=== PATIENT | male | born 1945 | race Caucasian/White ===

== ENCOUNTER 2019-01-11 02:39 | Emergency (ER) | payer MEDICARE, SELFPAY ==
[2019-01-11] VITALS (7 sets, daily range): BP systolic 98–108; BP diastolic 70–82; PULSE 133–156; RESP 17–25; TEMP 36.7; O2SAT 93–96
--- NOTE | 2019-01-11 02:42 | DI.CT.S_ITS ---
PROCEDURE: CT HEAD/BRAIN WO CON INDICATIONS: stroke, TPA candidate TECHNIQUE: Noncontrast 4.5 mm thick angled axial sections acquired from the foramen magnum to the vertex, with coronal and sagittal reformats. For radiation dose reduction, the following was used: automated exposure control, adjustment of mA and/or kV according to patient size. COMPARISON: None. FINDINGS: Image quality: Excellent. CSF spaces: Basal cisterns are patent. No extra-axial fluid collections. The ventricles are symmetric in size and shape. Brain: No intracranial bleeds or masses. There is cerebral volume loss for age, with resultant ventricular and sulcal prominence. There are periventricular and deep white matter chronic small vessel ischemic changes. There is intracranial internal carotid artery and vertebral artery atherosclerosis. Skull and face: Calvarium and visualized facial bones appear intact, without suspicious lesions. Sinuses: Mucosal thickening causes near complete opacification of the right maxillary sinus. The mastoids are clear. IMPRESSION: No acute intracranial disease process. Dictated by: Janie Gagnon MD, PhD on 01/11/2019 at 7:22 Approved by: Janie Gagnon MD, PhD on 01/11/2019 at 7:23
--- NOTE | 2019-01-11 02:46 | DI.CT.S_ITS ---
PROCEDURE: CT ANGIO HEAD AND NECK INDICATIONS: large stroke TECHNIQUE: Pre-contrast 4.5 mm thick sections acquired from the foramen magnum to the vertex. After the administration of intravenous contrast, 1 mm thick sections acquired from the aortic arch through the Augustine of Guevara. Post-contrast 4.5 mm thick sections then re-acquired from the foramen magnum to the vertex. 3-dimensional mwejujn-jbwokhvjb-nrnkvfueuj (MIP) and/or volume rendering reformats were acquired of the central intracranial vasculature and neck separately. COMPARISON: [facility], CT, CT HEAD/BRAIN WO CON, 01/11/2019, 2:33. FINDINGS: Image quality: Excellent. BRAIN: CSF spaces: Ventricles are normal in size and shape. Basal cisterns are patent. No extra-axial fluid collections. Brain: No midline shift. No intracranial bleeds or masses. Jackson-white matter interface appears intact. Skull and face: Calvarium and facial bones appear intact, without suspicious lesions. Orbits appear normal. Sinuses: Severe mucosal thickening causing 8 near complete opacification of the visualized right maxillary sinus. mastoids are clear. HEAD CT ANGIOGRAPHY: Anterior circulation: Intracranial internal carotid arteries are normal in flow. Atherosclerotic calcifications noted in the petrous, cavernous and clinoid segments of the internal carotid arteries bilaterally which causes mild multifocal stenoses. The flow within the paired anterior cerebral arteries is normal and symmetric. The flow within the middle cerebral arteries is normal and symmetric. The anterior communicating artery is seen. No aneurysms are seen. Posterior circulation: Atherosclerotic calcifications noted in the V4 segments of the vertebral arteries bilaterally which cause mild short segment stenosis. There is normal flow in the basilar artery. Flow within the posterior cerebral arteries is normal and symmetric. No aneurysms are seen. NECK CT ANGIOGRAPHY: Carotid system: The great vessels demonstrate a conventional anatomy as they arise from the aortic arch. The origins of the common carotid arteries appear patent. The common carotid arteries demonstrate normal caliber and courses. The bifurcation regions are both widely patent. Atherosclerotic calcification is noted in the origins of the internal carotid arteries bilaterally which causes less than 50% stenosis of the vessels.. Posterior circulation: The origins of the vertebral arteries both appear widely patent. The more superior extracranial portions of both vertebral arteries also demonstrate normal courses and calibers. They join to form a normal appearing basilar artery. Soft tissues: Visualized neck soft tissues demonstrate no suspicious abnormalities. Bones: No suspicious bony lesions. Incidental note made of torus mandibularis. Spine degenerative disc disease and facet arthropathy. Visualized cervical spine appears normally aligned. IMPRESSION: 1. No acute intracranial disease process. 2. No large vessel occlusion, hemodynamically significant vascular stenosis, vascular dissection or aneurysm. Any quantitative measurements of stenosis were performed using NASCET criteria. Dictated by: Janie Gagnon MD, PhD on 01/11/2019 at 8:56 Approved by: Janie Gagnon MD, PhD on 01/11/2019 at 9:06
[2019-01-11 02:50] LABS: Add Manual Diff / Slide Review NO; Basophils Absolute Auto 100 /uL (0-100); Basophils Percent Auto 1.2 % (0-2); Eosinophils Absolute Auto 300 /uL (0-450); Eosinophils Percent Auto 3.7 % (2-4); Hematocrit 45.7 % (41-53); Hemoglobin 15.4 g/dL (13.5-17.5); Lymphocytes Absolute Auto 1300 /uL (1100-4500); Lymphocytes Percent Auto 18.3 % (25-40); Mean Corpuscular HGB Conc 33.6 % (30-36); Mean Corpuscular Hemoglobin 33.2 PG (26-34); Mean Corpuscular Volume 98.8 fL (80-100); Monocytes Absolute Auto 800 /uL (0-900); Monocytes Percent Auto 11.9 % (3-14); Neutrophils Absolute Auto 4500 /uL (1500-7000); Neutrophils Percent Auto 64.9 % (50-75); Platelet Count 302 X10^3/uL (150-400); Red Blood Cell Count 4.63 X10^6/uL (4.5-5.9); Red Cell Distribution Width 14.4 % (11.6-14.8); White Blood Cell Count 6.9 X10^3/uL (4.5-11.0)
[2019-01-11 02:56] LABS: INR 1.1 (0.9-1.3); Prothrombin Time 12.3 SECONDS (10.1-12.7)
[2019-01-11 02:58] LABS: PTT Partial Thromboplastin Tim 30 SECONDS (26.4-36.2)
[2019-01-11 03:00] LABS: BUN Creatinine Ratio 17.5 (6-22); Blood Urea Nitrogen 14 mg/dL (9-20); Calcium 8.9 mg/dL (8.4-10.2); Carbon Dioxide 27 mmol/L (22-32); Chloride 104 mmol/L (98-107); Estimated Glomerular Filt Rate > 60.0 mL/min (>60); Glucose 114 mg/dL (80-110); HEMOLYSIS < 15 (0-50); Potassium 4.2 mmol/L (3.4-5.1); Sodium 141 mmol/L (137-145)
--- NOTE | 2019-01-11 03:00 | ED.AMS ---
HPI - Altered Mental Status General Chief Complaint: Altered Mental Status Stated Complaint: Code Stroke Time Seen by Provider: 01/11/19 02:40 Source: family and EMS Mode of arrival: EMS Limitations: altered mental status History of Present Illness HPI narrative: 73-year-old male former smoker whom does not see doctors and carries no known medical problems presents by EMS with large obvious stroke. He is activated as a code stroke and taken directly to CT scan. He was in his normal state of health until 1:00 a.m. and while sitting up eating with his significant other initially complained of a leg cramp and then had a profound change in his mental status and ability to follow commands. They then called family whom activated EMS. Daughter is at the bedside and states he takes no medications, has never had a stroke before, has no known diagnosis of atrial fibrillation, has had no recent surgeries. He has had no recent illness and no injury MD complaint: altered mental status, confusion, decreased responsiveness and weakness Onset (ago): hour(s) Time: 01:00 Timing confirmed by: spouse Severity: severe Consistency of symptoms: constant Related Data Home Medications Medication Instructions Recorded Confirmed No Known Home Medications 01/11/19 01/11/19 Allergies Allergy/AdvReac Type Severity Reaction Status Date / Time No Known Drug Allergies Allergy Verified 01/11/19 02:57 Review of Systems Review of Systems ROS Unobtainable: Unobtainable due to mental status/LOC Exam Narrative Exam Narrative: GENERAL: 73-year-old male in obvious significant distress with what appeared to be a large stroke HEAD: Atraumatic. Normocephalic. No temporal or scalp tenderness. EYES: Pupils equal round and reactive. Extraocular motions intact. No scleral icterus. No injection or drainage. ENT: Nose without bleeding, purulent drainage or septal hematoma. Throat without erythema, tonsillar hypertrophy or exudate. Uvula midline. Airway patent. NECK: Trachea midline. No JVD or lymphadenopathy. Supple, nontender, no meningeal signs. CARDIOVASCULAR: Rapid and irregular RESPIRATORY: Clear to auscultation. Breath sounds equal bilaterally. No wheezes, rales, or rhonchi. GASTROINTESTINAL: Abdomen soft, non-tender, nondistended. No hepato-splenomegaly, or palpable masses. No guarding. EXTREMITIES: No clubbing, cyanosis, or edema. No joint tenderness, effusion, or edema noted. BACK: Nontender without deformity or crepitance. No flank tenderness. SKIN: No rash or erythema. Initial Vital Signs Initial Vital Signs: Vital Signs Temperature 98.1 F 01/11/19 02:42 Pulse Rate 152 H 01/11/19 02:42 Respiratory Rate 17 01/11/19 02:42 Blood Pressure 108/82 01/11/19 02:42 Pulse Oximetry 96 01/11/19 02:42 Scores NIH Stroke Scale Level of Conciousness: Alert, keenly responsive Ask month/age: Answers neither question correctly, aphasic, stuporous, coma Open/close eyes, close hand: Performs one task correctly Best gaze horizontal: Normal Visual guerrero: No visual loss Facial palsy: Partial paralysis, total or near total paralysis of lower face Left arm drift: No drift for full 10 sec Right arm drift: Some effort against gravity, cannot maintain, drifts down to bed Left leg drift: No drift for full 10 sec Right leg drift: No effort against gravity Limb ataxia: Absent Sensory on face/arms/legs: Mild to moderate sensory loss, can tell touch Best language: Severe aphasia, not much is understood, fragmented Dysarthria: Severe, unintelligible Extinction or inattention: Visual, tactile, auditory, spacial or personal inattention to stimuli Total NIH Stroke scale score: 16 Course Orders Ordered: ED Orders 01/11/19 02:42 CT head/brain wo con Stat Basic Metabolic Panel Stat Complete Blood Count AUTO DIFF Stat Ethanol (ETOH) Stat Partial Thromboplastin Time Stat Prothrombin Time INR Stat Urine Drug Screen, Rapid Stat EKG-12 Lead Stat 01/11/19 02:46 CT angio head and neck Stat 01/11/19 03:25 Type and Screen Stat Sodium Chloride (Normal Saline 0.9%) 1,000 mls @ 150 mls/hr IV CONT PORFIRIO Last Admin: 01/11/19 03:17 Dose: 150 mls/hr Discontinued Medications Alteplase, Recombinant (Activase) 74 mg 0.81 mg/kg (74 mg) IV NOW ONE Stop: 01/11/19 04:00 Last Admin: 01/11/19 03:56 Dose: 74 mg Alteplase, Recombinant (Activase) 8 mg 0.09 mg/kg (8 mg) IV NOW ONE Stop: 01/11/19 04:00 Last Admin: 01/11/19 03:56 Dose: 8 mg Diltiazem HCl (Cardizem) 10 mg IV NOW ONE Stop: 01/11/19 03:14 Last Admin: 01/11/19 03:17 Dose: 10 mg Metoprolol Tartrate (Lopressor) 5 mg IV Q5M [facility] Stop: 01/11/19 04:41 Last Admin: 01/11/19 05:10 Dose: 5 mg Admin: 01/11/19 05:04 Dose: 5 mg Reevaluation(s) Reevaluation #1: tPA Contraindications for Ischemic Stroke from [employer] on 01/11/2019 All calculations should be rechecked by clinician prior to use RESULT SUMMARY: Patient eligible for tPA. INPUTS: Age ?17 ?> 1 = Yes Clinical diagnosis of ischemic stroke causing neurological deficit ?> 1 = Yes Time of symptom onset <4.5 hours ?> 1 = Yes Intracranial hemorrhage on CT ?> 0 = No Clinical presentation suggests subarachnoid hemorrhage ?> 0 = No Neurosurgery, head trauma, or stroke in past 3 months ?> 0 = No Uncontrolled hypertension (>185 mmHg SBP or >110 mmHg DBP) ?> 0 = No History of intracranial hemorrhage ?> 0 = No Known intracranial arteriovenous malformation, neoplasm, or aneurysm ?> 0 = No Active internal bleeding ?> 0 = No Suspected/confirmed endocarditis ?> 0 = No Known bleeding diathesis ?> 0 = No Abnormal blood glucose (<50 mg/dL) ?> 0 = No Only minor or rapidly improving stroke symptoms ?> 0 = No Major surgery or serious non-head trauma in the previous 14 days ?> 0 = No History of gastrointestinal or urinary tract hemorrhage within 21 days ?> 0 = No Seizure at stroke onset ?> 0 = No Recent arterial puncture at a noncompressible site ?> 0 = No Recent lumbar puncture ?> 0 = No Post myocardial infarction pericarditis ?> 0 = No ?> 0 = No Age >80 years ?> 0 = No History of prior stroke and diabetes ?> 0 = No Any active anticoagulant use (even with INR <1.7) ?> 0 = No <calculator id='[id number]'>NIHSS</calculator> >25 ?> 0 = No CT shows multilobar infarction (hypodensity >1/3 cerebral hemisphere) ?> 0 = No tPA (Tissue Plasminogen Activator) Dosing for Stroke Calculator from [employer] on 01/11/2019 All calculations should be rechecked by clinician prior to use RESULT SUMMARY: 8.2 mg Bolus dose, given IV over 1 min 74.1 mg Infusion, given IV over 60 mins 17.6 mg Waste, to be discarded INPUTS: Weight ?> 91.5 kg bolus initiated at 0356 infusion at 0357, complete at 0456 Reevaluation #2: patient is having some mild improvement, though still life altering event. I had a lengthy discussion with the on-call stroke neurologist including some mild improvement, as well as the presence of rapid AFib. We sure the opinion that I a cardioversion this patient is not indicated in that rate control is appropriate but this is not a contraindication to the use of tPA. I have consented the patient and multiple family members at the bedside regarding the risks and benefits of the administration of tPA and we all sure the opinion that in an effort to give the patient the best chance at a return of normal function tPA will be administered. 0352 [facility] contacted for weather check. Stroke provider viewing CTA Reevaluation #3: minimal rate control with Cardizem 10mg IVP very minimal improvement if any with Metoprolol 5mg IV x3 overall neurologic symptoms mildly improved with subtle change in facial weakness, still cannot effectively communicate Able to use R arm now R leg shows no improvement Consultations Consultation #1: stroke team paged stroke paged for 3rd time ([id number]). Wrong number provided Dr. Zambrano stroke physician has interpreted CTA and suggests there is likely a soft clot at distal M1 and instructs us to proceed with Code IR Time: 03:00 Vital Signs - 8 hr 01/11/19 02:42 01/11/19 03:09 01/11/19 03:17 Temperature 98.1 F 98.1 F Pulse Rate 152 H 152 H 156 H Respiratory Rate 17 17 Blood Pressure 108/82 101/70 Blood Pressure [Right Arm] 108/82 Pulse Oximetry 96 96 01/11/19 03:21 01/11/19 03:41 01/11/19 03:43 Temperature Pulse Rate 137 H 133 H 150 H Respiratory Rate 21 25 H 24 Blood Pressure Blood Pressure [Right Arm] 103/73 101/74 101/74 Pulse Oximetry 93 96 95 01/11/19 03:53 Temperature Pulse Rate 142 H Respiratory Rate 20 Blood Pressure Blood Pressure [Right Arm] 98/81 Pulse Oximetry 93 MDM - Altered Mental Status Differential Diagnosis Likely altered mental status Medical Records Attestation: I reviewed the patient's medical records. Lab Data Attestation: I reviewed the patient's lab results. Result diagrams: 01/11/19 02:42 01/11/19 02:42 Lab Results 01/11/19 01/11/19 01/11/19 Range/Units 02:42 02:42 02:42 WBC 6.9 (4.5-11.0) X10^3/uL RBC 4.63 (4.5-5.9) X10^6/uL Hgb 15.4 (13.5-17.5) g/dL Hct 45.7 (41-53) % MCV 98.8 (80-100) fL MCH 33.2 (26-34) PG MCHC 33.6 (30-36) % RDW 14.4 (11.6-14.8) % Plt Count 302 (150-400) X10^3/uL Neut % (Auto) 64.9 (50-75) % Lymph % (Auto) 18.3 L (25-40) % Fannin % (Auto) 11.9 (3-14) % Eos % (Auto) 3.7 (2-4) % Baso % (Auto) 1.2 (0-2) % Neut # (Auto) 4500 (8172-6372) /uL Lymph # (Auto) 1300 (5663-9492) /uL Fannin # (Auto) 800 (0-900) /uL Eos # (Auto) 300 (0-450) /uL Baso # (Auto) 100 (0-100) /uL PT 12.3 (10.1-12.7) SECONDS INR 1.1 (0.9-1.3) APTT 30 (26.4-36.2) SECONDS Sodium 141 (137-145) mmol/L Potassium 4.2 (3.4-5.1) mmol/L Chloride 104 (98-107) mmol/L Carbon Dioxide 27 (22-32) mmol/L BUN 14 (9-20) mg/dL Creatinine 0.80 (0.66-1.25) mg/dL Estimated GFR > 60.0 (>60) mL/min BUN/Creatinine Ratio 17.5 (6-22) Glucose 114 H (80-110) mg/dL Calcium 8.9 (8.4-10.2) mg/dL Ethyl Alcohol mg/dL Blood Type Antibody Screen 01/11/19 01/11/19 Range/Units 02:42 03:25 WBC (4.5-11.0) X10^3/uL RBC (4.5-5.9) X10^6/uL Hgb (13.5-17.5) g/dL Hct (41-53) % MCV (80-100) fL MCH (26-34) PG MCHC (30-36) % RDW (11.6-14.8) % Plt Count (150-400) X10^3/uL Neut % (Auto) (50-75) % Lymph % (Auto) (25-40) % Fannin % (Auto) (3-14) % Eos % (Auto) (2-4) % Baso % (Auto) (0-2) % Neut # (Auto) (4317-1795) /uL Lymph # (Auto) (1454-9697) /uL Fannin # (Auto) (0-900) /uL Eos # (Auto) (0-450) /uL Baso # (Auto) (0-100) /uL PT (10.1-12.7) SECONDS INR (0.9-1.3) APTT (26.4-36.2) SECONDS Sodium (137-145) mmol/L Potassium (3.4-5.1) mmol/L Chloride (98-107) mmol/L Carbon Dioxide (22-32) mmol/L BUN (9-20) mg/dL Creatinine (0.66-1.25) mg/dL Estimated GFR (>60) mL/min BUN/Creatinine Ratio (6-22) Glucose (80-110) mg/dL Calcium (8.4-10.2) mg/dL Ethyl Alcohol < 10 mg/dL Blood Type A Negative Antibody Screen Negative Imaging Data CT scan - head: Attestation: I personally reviewed and interpreted this imaging study as follows: My impression: No bleed Radiologist's impression: No bleed or contraindication to TPA CTA Head/Neck: Attestation: I personally reviewed and interpreted this imaging study as follows: Radiologist's impression: Moderate atherosclerotic changes of extracranial and intracranial vessels without significant stenosis or occlusion identified ECG Data Attestation: I personally reviewed and interpreted this ECG as follows: Prior ECG tracings: not available for review Interpretation: Rapid AFib in the 140s without signs of ischemia Critical Care Time Critical Care Time: Yes Total Critical Care Time: 45 Attestation: The high probability of a clinically significant, sudden or life threatening deterioration of the [neurologic] system(s) required my full and direct attention, intervention and personal management. The aggregate critical care time was [45] minutes. This time is in addition to time spent performing reported procedures but includes the following: [x] Data Review and interpretation [x] Patient assessment and monitoring of vital signs [x] Documentation [x] Medication orders and management Discharge Plan Departure Patient Disposition: [facility] Clinical Impression: Acute ischemic stroke Prescriptions: No Action No Known Home Medications RF: 0
[2019-01-11] MEDS: dilTIAZem 5 MG/ML SDV 10 MG IV (03:17)
[2019-01-11] MEDS: SODIUM CHLORIDE 0.9% 1,000 ML 150 ML IV (03:17)
[2019-01-11 03:41] LABS: Ethanol (ETOH) < 10 mg/dL
--- NOTE | 2019-01-11 03:42 | PC.NURSE ---
Dr Hanley now at bedside discussing risks and benefits of TPA admin. Pt and family are agreeable.
[2019-01-11] MEDS: ALTEPLASE 100 MG VIAL 74 MG IV (03:56)
[2019-01-11] MEDS: ALTEPLASE 100 MG VIAL 8 MG IV (03:56)
--- NOTE | 2019-01-11 04:15 | PC.NURSE ---
diltiazem reduced heart rate to 140s, provider notified, orders recieved.
--- NOTE | 2019-01-11 04:59 | PC.NURSE ---
alteplase given per protocol. KW verified dosing. started at 0356. Ended at 0456.
[2019-01-11] MEDS: METOPROLOL TARTRATE 5 MG/5 ML INJ IV ×3 (05:04→05:28)
--- NOTE | 2019-01-11 06:16 | PC.NURSE ---
NIHSS in chart to be scanned into medical record.
--- NOTE | 2019-01-11 06:22 | PC.NURSE ---
Normal saline to continue in transport
== END 2019-01-11 05:25 | disposition short-term general hospital (02) ==
PROVIDERS: Emergency Provider Emergency Medicine
DX: I63.9 Cerebral infarction, unspecified (principal)
CPT/HCPCS: 36415; 70450; 70496; 70498; 80048; 80320; 85025; 85610; 85730; 86850; 86900; 86901; 93005; 93010; 96361; 96374; 96375; 99285; 99291; 99292; J2997; Q9967

== ENCOUNTER → 2019-06-21 13:40 | Outpatient (CLI) | payer MEDICARE, SELFPAY ==
--- NOTE | 2019-06-21 | DI.ECHO.S_ITS ---
[facility]---------+ [facility] +---------+ : : [address] : [place] : : : : [id number] : : : : Phone: [phone] Echocardiogram Report + + :Name: ALLAN GONZALES Study Date: 06/21/2019 Height: 73 in : :[facility] Weight: 187 lb : : Gender: Male BSA: 2.1 m2 : :: 1945 Age: 73 yrs BP: 138/82 mmHg: :Reason For Study: Atrial fibrillation : : Performed By: Karina Ascencio : :Referring: VINNIE WILLIAM : + + Interpretation Summary The ejection fraction is estimated to be 60-65%. There is mild mitral regurgitation. A patent foramen ovale is present. The aortic valve is moderately calcified. The calculated aortic valve area is 0.6 cm2. There is severe aortic stenosis. The right ventricular systolic pressure is estimated to be at least 44 mmHg based on an estimated right atrial pressure of 3 mm Hg. Procedure: A two-dimensional transthoracic echocardiogram with color flow and Doppler was performed. The study quality was technically good. Comparison is made with the echocardiogram of 11-23-09. The patient was in normal sinus rhythm during the exam. Left Ventricle: The left ventricle is normal in size, wall thickness, and systolic function without any focal wall motion abnormalities. The ejection fraction is estimated to be 60-65%. Left ventricular wall motion is normal. Diastolic parameters suggest a pseudonormalization pattern, consistent with probable elevated filling pressures. Right Ventricle: The right ventricle grossly appears normal in size with probable normal systolic function. Atria: The left atrium is mildly dilated. The right atrium is mildly dilated. A patent foramen ovale is present. Mitral Valve: The mitral valve leaflets appear mildly thickened, but open well. There is mild mitral regurgitation. Aortic Valve: The aortic valve is moderately calcified. The calculated aortic valve area is 0.6 cm2. The aortic valve area is 0.7 centimeters squared by planimetry. The peak aortic velocity is 4.5 m/sec. The aortic valve mean gradient is 49 mmHg. Severity ratio is 0.17. There is severe aortic stenosis. No aortic regurgitation is present. Tricuspid Valve: The tricuspid valve leaflets are thin and pliable. There is mild tricuspid regurgitation. The right ventricular systolic pressure is estimated to be at least 44 mmHg based on an estimated right atrial pressure of 3 mm Hg. Pulmonic Valve: The pulmonic valve is not well seen, but is grossly normal. There is mild pulmonic regurgitation. Great Vessels: The aortic root is mildly dilated. The ascending aorta is normal in size. The aortic arch is at the upper limits of normal in size. The IVC is of normal diameter and collapses greater than 50% with a sniff. This suggests a low right atrial pressure of 3 mm Hg. Pericardium/ Pleura There is no pericardial effusion. There is no pleural effusion. MMode/2D Measurements & Calculations LVIDd: 4.4 cm LVOT diam: 2.1 cm LVIDs: 2.3 cm Ao root diam: 3.9 cm FS: 48.2 % Aortic Jxn: 3.0 cm EPSS: 1.4 cm asc Aorta Diam: 3.4 cm IVSd: 1.0 cm Ao Arch Diam (Prox Trans): 3.0 cm LVPWd: 0.93 cm LV mendoza. diameter/BSA (cm/m^2): 2.1 LV sys. diameter/BSA (cm/m^2): 1.1 LA dimension: 5.1 cm RA long axis: 5.2 cm LA A2 area: 22.3 cm2 RA area: 21.7 cm2 LA A4 area: 23.6 cm2 RA vol: 77.5 ml LA length (vol): 6.2 cm RA : 37.0 ml/m2 LA vol: 71.9 ml IVC diam: 1.7 cm LA vol index: 34.4 ml/m2 RVDd major: 6.4 cm RVD1 (basal): 3.5 cm RVD2 (mid): 2.8 cm EBONI (plan): 0.65 cm2 Doppler Measurements & Calculations Ao V2 max: 448.1 cm/sec LVOT Max Mason: 76.8 cm/sec Ao V2 mean: 329.2 cm/sec LV V1 max P.4 mmHg Ao max P.3 mmHg LV V1 VTI: 21.2 cm Ao mean P.8 mmHg EBONI(I,D): 0.62 cm2 Ao V2 VTI: 124.1 cm EBONI(V,D): 0.62 cm2 sev ratio: 0.17 EBONI indexed to BSA (cm^2/m^2): 0.30 MV E max mason: 96.1 cm/sec TR max mason: 321.0 cm/sec MV A max mason: 26.6 cm/sec TR max P.2 mmHg MV E/A: 3.6 PA V2 max: 49.1 cm/sec Med Peak E' Mason: 3.8 cm/sec PA V2 mean: 31.9 cm/sec E/E' med: 25.4 PA mean P.49 mmHg Lat Peak E' Mason: 7.3 cm/sec PA Accel Time: 0.08 sec E/E' lat: 13.2 E/e' average: 19.3 MV dec time: 0.25 sec MV P1/2t: 76.3 msec MV P1/2t max mason: 97.4 cm/sec SV(LVOT): 76.8 ml MVA(P1/2t): 2.9 cm2 Reading Physician:10:23 AM
== END ==
PROVIDERS: Visit Provider Internal Medicine Cardiovascular Disease
DX: I08.3 Combined rheumatic disorders of mitral, aortic and tricuspid valves (principal); Q21.1 Atrial septal defect; I48.91 Unspecified atrial fibrillation
CPT/HCPCS: 93306

== ENCOUNTER 2020-07-21 17:38 | Emergency (ER) | payer MEDICARE, SELFPAY ==
[2020-07-21] VITALS (11 sets, daily range): BP systolic 115–140; BP diastolic 68–78; PULSE 69–90; RESP 14–35; TEMP 37.1; O2SAT 95–97; BMI 25.0
--- NOTE | 2020-07-21 17:55 | DI.CT.S_ITS ---
PROCEDURE: CT ABDOMEN PELVIS W CON INDICATIONS: Abdominal pain TECHNIQUE: After the administration of intravenous contrast, 5 mm thick sections acquired from the diaphragm to the symphysis. 5 mm coronal and sagittal reformats were acquired. For radiation dose reduction, the following was used: automated exposure control, adjustment of mA and/or kV according to patient size. COMPARISON: Outside Film, CT, CT ANGIO ABDOMEN PELVIS, 11/11/2019, 16:43. FINDINGS: Image quality: There is mild motion artifact. ABDOMEN: Lung bases: Mild dependent atelectasis is demonstrated bilaterally. Heart size is normal. There is a prosthetic aortic valve. There is a small hiatal hernia. Solid organs: Evaluation of the liver demonstrates no focal hepatic lesions. The gallbladder is distended with mild gallbladder wall thickening and enhancement. No calcified gallstones. Biliary system is non-dilated. Pancreas enhances normally. No peripancreatic fat stranding or fluid collections. No pancreatic duct dilatation. The spleen is normal in size. No adrenal nodules. Kidneys demonstrate no hydronephrosis. There is a small nonobstructing stone within the right kidney measuring up to 3 mm. Small hypodensities are demonstrated in the kidneys bilaterally, too small to characterize but likely representing cysts. Peritoneum and bowel: Small bowel loops demonstrate normal wall thickness and caliber. The appendix is not discretely identified and likely surgically absent. No pericecal inflammatory changes to suggest appendicitis. There is colonic diverticulosis without acute diverticulitis. Mild short segment mild bowel wall thickening is demonstrated in the sigmoid colon compatible with a mild colitis. There is moderate stool distention of the rectum suggestive of impaction. No free fluid or air. Nodes and vessels: No retroperitoneal or mesenteric adenopathy by size criteria. Aorta and inferior vena cava are normal in size. Miscellaneous: No ventral hernias. PELVIS: Genitourinary: Bladder wall thickness is normal. Miscellaneous: No inguinal hernias or adenopathy. Bones: No suspicious bony lesions. No vertebral body compression fractures. There is severe degenerative disc disease at L2-L3 and L4-5. IMPRESSION: 1. Distention of the gallbladder with mild wall thickening and enhancement. No calcified gallstones identified. The findings are suspicious for developing acute cholecystitis and if indicated further evaluation may be obtained with ultrasound. 2. Mild short segment colonic wall thickening in the sigmoid colon compatible with a nonspecific colitis, likely infectious or inflammatory. 3. Moderate stool distention in the rectum suggestive of fecal impaction. Dictated by: Diego Martinez M.D. on 07/21/2020 at 19:08 Approved by: Diego Martinez M.D. on 07/21/2020 at 19:14
[2020-07-21] MEDS: SODIUM CHLORIDE 0.9% 1,000 ML 150 ML IV (18:01)
[2020-07-21 18:09] LABS: Add Manual Diff / Slide Review NO; Basophils Absolute Auto 100 /uL (0-100); Basophils Percent Auto 0.6 % (0-2); Eosinophils Absolute Auto 100 /uL (0-450); Hematocrit 45.6 % (41-53); Hemoglobin 15.6 g/dL (13.5-17.5); Lymphocytes Absolute Auto 900 /uL (1100-4500); Lymphocytes Percent Auto 8.8 % (25-40); Mean Corpuscular HGB Conc 34.3 % (30-36); Mean Corpuscular Hemoglobin 31.4 PG (26-34); Mean Corpuscular Volume 91.4 fL (80-100); Monocytes Absolute Auto 900 /uL (0-900); Monocytes Percent Auto 8.9 % (3-14); Neutrophils Absolute Auto 8400 /uL (1500-7000); Neutrophils Percent Auto 80.7 % (50-75); Platelet Count 317 X10^3/uL (150-400); Red Blood Cell Count 4.99 X10^6/uL (4.5-5.9); Red Cell Distribution Width 15.6 % (11.6-14.8); White Blood Cell Count 10.4 X10^3/uL (4.5-11.0)
[2020-07-21 18:14] LABS: Alanine Aminotransferase 18 IU/L (<50); Albumin 4.3 g/dL (3.5-5.0); Albumin Globulin Ratio 1.2 (1.0-2.8); Alkaline Phosphatase 106 U/L (38-126); Aspartate Aminotransferase 24 IU/L (17-59); BUN Creatinine Ratio 23.8 (6-22); Bilirubin Total 2.4 mg/dL (0.2-1.3); Blood Urea Nitrogen 19 mg/dL (9-20); Calcium 9.4 mg/dL (8.4-10.2); Carbon Dioxide 24 mmol/L (22-32); Chloride 103 mmol/L (98-107); Estimated Glomerular Filt Rate > 60.0 mL/min (>60); Globulin 3.7 g/dL (1.7-4.1); Glucose 99 mg/dL (80-110); HEMOLYSIS < 15 (0-50); Lipase 30 U/L (23-300); Potassium 4.4 mmol/L (3.4-5.1); Sodium 135 mmol/L (137-145)
--- NOTE | 2020-07-21 19:08 | ED_ITS ---
HPI - Nausea/Vomiting/Diarrhea General Chief complaint: Nausea/Vomiting/Diarrhea Stated complaint: severe abd pain/had diarrhea now constipation Time Seen by Provider: 07/21/20 17:43 Source: patient Mode of arrival: Ambulatory Limitations: no limitations History of Present Illness HPI Narrative: 74-year-old male nonsmoker with history of high blood pressure and previous stroke presents with family and a chief complaint of 3 days of increasing abdominal discomfort, decreased bowel movements and some nausea. He had been having diarrhea prior to all this and had been prescribed an anti diarrheal medication and seems to be a problems with constipation now. His discomfort is persistent and seems to be worse with motion and improves with rest. He denies any fever or chills. He has had a decreased appetite during this episode. He does not have a longstanding history of constipation. MD complaint: nausea and abdominal pain Related Data Home Medications Medication Instructions Recorded Confirmed atorvastatin 10 mg PO DAILY 07/21/20 07/21/20 warfarin 5 mg PO DAILY 07/21/20 07/21/20 Allergies Allergy/AdvReac Type Severity Reaction Status Date / Time No Known Drug Allergies Allergy Verified 01/11/19 02:57 Review of Systems Constitutional Constitutional: Denies chills, Denies fatigue, Denies fever(s), Denies frequent falls, Denies lethargy and Denies weakness Eyes Eyes: Denies change in vision, Denies eye discharge, Denies irritation and Denies loss of vision ENT Ears, Nose, Mouth, and Throat: Denies change in voice, Denies dizziness, Denies neck pain, Denies sore throat and Denies throat swelling Cardiovascular Cardiovascular: Denies chest pain, Denies irregular heart rhythm, Denies lightheadedness, Denies palpitations, Denies dyspnea, Denies dyspnea on exertion and Denies orthopnea Respiratory Respiratory: Denies cough, Denies dyspnea, Denies dyspnea on exertion and Denies wheezing Gastrointestinal Gastrointestinal: Reports abdominal pain, Denies change in bowel habits, Reports change in stool character, Denies diarrhea, Reports nausea and Denies vomiting Musculoskeletal Musculoskeletal: Denies neck pain and Denies numbness Integumentary/Breasts Skin/Breast: Denies pruritus, Denies erythema, Denies rash and Denies wounds Neurologic Neurologic: Denies behavioral changes, Denies confusion, Denies dizziness, Denies frequent falls, Denies loss of vision, Denies numbness and Denies weakness Psychiatric Psychiatric: Denies anxiety, Denies behavioral changes, Denies confusion, Denies depression, Denies homicidal ideation and Denies suicidal ideation Endocrine Endocrine: Denies fatigue, Denies flushing and Denies palpitations Hematologic/Lymphatic Hematologic/Lymphatic: Denies easy bruising Allergic/Immunologic Allergic/Immunologic: Denies urticaria, Denies throat swelling and Denies whee zing Patient History Social History Smoking Status: Never smoker Smoking Status: Never smoker alcohol intake frequency: 0-2 drinks per day Substance Use Type: does not use Exam Narrative Exam Narrative: GENERAL: [74] year old patient appears stated age. Well- nourished, well-developed patient, in mild distress. Very hard of hearing HEAD: Atraumatic. Normocephalic. EYES: Pupils equal round and reactive. Extraocular motions intact. No scleral icterus. No injection or drainage. ENT: Nose without bleeding, purulent drainage. Throat without erythema, tonsillar hypertrophy or exudate. Airway patent. NECK: Trachea midline. Non tender CARDIOVASCULAR: Regular rate and rhythm without murmurs, gallops, or rubs. RESPIRATORY: Clear to auscultation. Breath sounds equal bilaterally. No wheezes, rales, or rhonchi. GASTROINTESTINAL: Abdomen soft, non-tender, nondistended. Bowel sounds in all 4 quadrants. No pain in RUQ RECTAL: Large amount of stool in rectum. EXTREMITIES: No edema or joint tenderness. BACK: Nontender without deformity or crepitance. No flank tenderness. NEURO: AOx3. SKIN: No rash or erythema of visible areas Initial Vital Signs Initial Vital Signs: Vital Signs Temperature 98.7 F 07/21/20 17:50 Pulse Rate 81 07/21/20 17:50 Respiratory Rate 16 07/21/20 17:50 Blood Pressure 136/78 07/21/20 17:50 Pulse Oximetry 96 07/21/20 17:50 Course Course Course Narrative: fair amount of stool removed with manual disimpaction, however still stool in rectal vault. Enema performed by nursing and patient has tremendous improvement in symptoms. Orders Ordered: ED Orders 07/21/20 17:50 Complete Blood Count AUTO DIFF Stat Comprehensive Metabolic Panel Stat Lipase Stat 07/21/20 17:55 CT abdomen pelvis w con Stat 07/21/20 19:28 US abdomen limited Stat Sodium Chloride (Normal Saline 0.9%) 1,000 mls @ 150 mls/hr IV CONT PORFIRIO Last Admin: 07/21/20 18:01 Dose: 150 mls/hr Documented by: DOUGLAS Discontinued Medications Sodium Biphosphate/Sodium Phosphate (Fleet Enema) 1 each IA NOW ONE Stop: 07/21/20 21:08 Last Admin: 07/21/20 21:09 Dose: 1 each Documented by: MINI Vital Signs Vital signs: Vital Signs - 8 hr 07/21/20 17:50 07/21/20 17:59 07/21/20 18:00 Temperature 98.7 F Pulse Rate 81 90 84 Respiratory Rate 16 32 H 24 Blood Pressure 136/78 115/68 Pulse Oximetry 96 96 97 07/21/20 18:38 07/21/20 19:00 07/21/20 19:30 Temperature Pulse Rate 78 76 73 Respiratory Rate 24 34 H 24 Blood Pressure 131/75 135/78 Pulse Oximetry 97 96 97 07/21/20 20:00 07/21/20 20:30 07/21/20 21:00 Temperature Pulse Rate 69 75 Respiratory Rate 21 20 Blood Pressure 127/75 139/70 137/72 Pulse Oximetry 95 96 07/21/20 22:00 Temperature Pulse Rate 70 Respiratory Rate 35 H Blood Pressure 140/75 Pulse Oximetry 95 MDM - Nausea/Vomiting/Diarrhea Lab Data Result diagrams: 07/21/20 17:50 07/21/20 17:50 Labs: Lab Results 07/21/20 07/21/20 Range/Units 17:50 17:50 WBC 10.4 (4.5-11.0) X10^3/uL RBC 4.99 (4.5-5.9) X10^6/uL Hgb 15.6 (13.5-17.5) g/dL Hct 45.6 (41-53) % MCV 91.4 (80-100) fL MCH 31.4 (26-34) PG MCHC 34.3 (30-36) % RDW 15.6 H (11.6-14.8) % Plt Count 317 (150-400) X10^3/uL Neut % (Auto) 80.7 H (50-75) % Lymph % (Auto) 8.8 L (25-40) % Shelby % (Auto) 8.9 (3-14) % Eos % (Auto) 1.0 L (2-4) % Baso % (Auto) 0.6 (0-2) % Neut # (Auto) 8400 H (1218-3318) /uL Lymph # (Auto) 900 L (0794-3228) /uL Shelby # (Auto) 900 (0-900) /uL Eos # (Auto) 100 (0-450) /uL Baso # (Auto) 100 (0-100) /uL Sodium 135 L (137-145) mmol/L Potassium 4.4 (3.4-5.1) mmol/L Chloride 103 (98-107) mmol/L Carbon Dioxide 24 (22-32) mmol/L BUN 19 (9-20) mg/dL Creatinine 0.80 (0.66-1.25) mg/dL Estimated GFR > 60.0 (>60) mL/min BUN/Creatinine Ratio 23.8 H (6-22) Glucose 99 (80-110) mg/dL Calcium 9.4 (8.4-10.2) mg/dL Total Bilirubin 2.4 H (0.2-1.3) mg/dL AST 24 (17-59) IU/L ALT 18 (<50) IU/L Alkaline Phosphatase 106 (38-126) U/L Total Protein 8.0 (6.3-8.2) g/dL Albumin 4.3 (3.5-5.0) g/dL Globulin 3.7 (1.7-4.1) g/dL Albumin/Globulin Ratio 1.2 (1.0-2.8) Lipase 30 (23-300) U/L Urine Dip Bedside Urine Glucose Negative Bedside Urine Bilirubin - Negative Bedside Urine Ketone + 15 Urine Specific [place] 1.010 Bedside Urine Occult Blood - Negative Bedside Urine pH 6.0 Bedside Urine Protein - Negative Bedside Urine Urobilinogen - Negative Bedside Urine Nitrite - Negative Bedside Urine Leukocytes - Negative Esterase Imaging Data CT scan - abdomen/pelvis: Radiologist's Impression: [address] [address] [address] Scan Report Signed Patient: Kelvin Headley GMR#: [id number] : 4Acct:[id number] Age/Sex: 74 / MDate of Service: 07/21/20 Loc: ED Accession Number: [id number] Procedure: CT abdomen pelvis w con Ordering Provider: Aisha Lanier D.O. PROCEDURE: CT ABDOMEN PELVIS W CON INDICATIONS: Abdominal pain TECHNIQUE: After the administration of intravenous contrast, 5 mm thick sections acquired from the diaphragm to the symphysis. 5 mm coronal and sagittal reformats were acquired. For radiation dose reduction, the following was used: automated exposure control, adjustment of mA and/or kV according to patient size. COMPARISON: Outside Film, CT, CT ANGIO ABDOMEN PELVIS, 11/11/2019, 16:43. FINDINGS: Image quality: There is mild motion artifact. ABDOMEN: Lung bases: Mild dependent atelectasis is demonstrated bilaterally. Heart size is normal. There is a prosthetic aortic valve. There is a small hiatal hernia. Solid organs: Evaluation of the liver demonstrates no focal hepatic lesions. The gallbladder is distended with mild gallbladder wall thickening and enhancement. No calcified gallstones. Biliary system is non-dilated. Pancreas enhances maegan lly. No peripancreatic fat stranding or fluid collections. No pancreatic duct dilatation. The spleen is normal in size. No adrenal nodules. Kidneys demonstrate no hydronephrosis. There is a small nonobstructing stone within the right kidney measuring up to 3 mm. Small hypodensities are demonstrated in the kidneys bilaterally, too small to characterize but likely representing cysts. Peritoneum and bowel: Small bowel loops demonstrate normal wall thickness and caliber. The appendix is not discretely identified and likely surgically absent. No pericecal inflammatory changes to suggest appendicitis. There is colonic diverticulosis without acute diverticulitis. Mild short segment mild bowel wall thickening is demonstrated in the sigmoid colon compatible with a mild colitis. There is moderate stool distention of the rectum suggestive of impaction. No free fluid or air. Nodes and vessels: No retroperitoneal or mesenteric adenopathy by size criteria. Aorta and inferior vena cava are normal in size. Miscellaneous: No ventral hernias. PELVIS: Genitourinary: Bladder wall thickness is normal. Miscellaneous: No inguinal hernias or adenopathy. Bones: No suspicious bony lesions. No vertebral body compression fractures. There is severe degenerative disc disease at L2-L3 and L4-5. IMPRESSION: 1. Distention of the gallbladder with mild wall thickening and enhancement. No calcified gallstones identified. The findings are suspicious for developing acute cholecystitis and if indicated further evaluation may be obtained with ultrasound. 2. Mild short segment colonic wall thickening in the sigmoid colon compatible with a nonspecific colitis, likely infectious or inflammatory. 3. Moderate stool distention in the rectum suggestive of fecal impaction. Dictated by: Diego Martinez M.D. on 07/21/2020 at 19:08 Approved by: Diego Martinez M.D. on 07/21/2020 at 19:14 US - abdomen: Radiologist's Impression: [address] [address] [address] Scan Report Signed Patient: Kelvin Headley GMR#: [id number] : 4Acct:[id number] Age/Sex: 74 / MDate of Service: 07/21/20 Loc: ED Accession Number: [id number] Procedure: CT abdomen pelvis w con Ordering Provider: Aisha Lanier D.O. PROCEDURE: CT ABDOMEN PELVIS W CON INDICATIONS: Abdominal pain TECHNIQUE: After the administration of intravenous contrast, 5 mm thick sections acquired from the diaphragm to the symphysis. 5 mm coronal and sagittal reformats were acquired. For radiation dose reduction, the following was used: automated exposure control, adjustment of mA and/or kV according to patient size. COMPARISON: Outside Film, CT, CT ANGIO ABDOMEN PELVIS, 11/11/2019, 16:43. FINDINGS: Image quality: There is mild motion artifact. ABDOMEN: Lung bases: Mild dependent atelectasis is demonstrated bilaterally. Heart size is normal. There is a prosthetic aortic valve. There is a small hiatal hernia. Solid organs: Evaluation of the liver demonstrates no focal hepatic lesions. The gallbladder is distended with mild gallbladder wall thickening and enhancement. No calcified gallstones. Biliary system is non-dilated. Pancreas enhances normally. No peripancreatic fat stranding or fluid collections. No pancreatic duct dilatation. The spleen is normal in size. No adrenal nodules. Kidneys demonstrate no hydronephrosis. There is a small nonobstructing stone within the right kidney measuring up to 3 mm. Small hypodensities are demonstrated in the kidneys bilaterally, too small to characterize but likely representing cysts. Peritoneum and bowel: Small bowel loops demonstrate normal wall thickness and caliber. The appendix is not discretely identified and likely surgically absent. No pericecal inflammatory changes to suggest appendicitis. There is colonic diverticulosis without acute diverticulitis. Mild short segment mild bowel wall thickening is demonstrated in the sigmoid colon compatible with a mild colitis. There is moderate stool distention of the rectum suggestive of impaction. No free fluid or air. Nodes and vessels: No retroperitoneal or mesenteric adenopathy by size criteria. Aorta and inferior vena cava are normal in size. Miscellaneous: No ventral hernias. PELVIS: Genitourinary: Bladder wall thickness is normal. Miscellaneous: No inguinal hernias or adenopathy. Bones: No suspicious bony lesions. No vertebral body compression fractures. There is severe degenerative disc disease at L2-L3 and L4-5. IMPRESSION: 1. Distention of the gallbladder with mild wall thickening and enhancement. No calcified gallstones identified. The findings are suspicious for developing acute cholecystitis and if indicated further evaluation may be obtained with ultrasound. 2. Mild short segment colonic wall thickening in the sigmoid colon compatible with a nonspecific colitis, likely infectious or inflammatory. 3. Moderate stool distention in the rectum suggestive of fecal impaction. Dictated by: Diego Martinez M.D. on 07/21/2020 at 19:08 Approved by: Diego Martinez M.D. on 07/21/2020 at 19:14 Discharge Plan Departure Patient Disposition: Home Clinical Impression: Fecal impaction Instructions: DI for Fecal Impaction Activity Restrictions/Additional Instructions: *You have been diagnosed with [ abdominal pain due to constipation ] *What to do: *Take over the counter medications as directed: 1. Metamucil - is a bulk forming laxative and adds fiber 2. Colace - softens your stool 3. Dulcolax suppository - stimulates your bowels *Follow up with your primary care provider in 2-3 days, call for appointment *Return to ER if you should have any new, worsening or concerning symptoms *Drink plenty of water and eat foods high in fiber *Stay as active as you can as this helps move your bowels as well Prescriptions: No Action atorvastatin 10 mg tablet 10 mg PO DAILY RF: 0 warfarin 5 mg tablet 5 mg PO DAILY RF: 0 Referrals: Anali Roman MD [Primary Care Provider] -
--- NOTE | 2020-07-21 19:28 | DI.US.S_ITS ---
PROCEDURE: US ABDOMEN LIMITED INDICATIONS: abdominal pain, abnormal GB on CT TECHNIQUE: Real-time focused scanning was performed of the right upper quadrant, with image documentation. COMPARISON: [facility], CT, CT ABDOMEN PELVIS W CON, 07/21/2020, 18:20. FINDINGS: Evaluation limited by bowel gas. The gallbladder demonstrates no gallstones . No definite gallbladder wall thickening or pericholecystic fluid. No reported sonographic Bustos's sign. No intra or extrahepatic biliary ductal dilatation. Common bile duct measures up to 3 mm. The pancreas was not well visualized sonographically. IMPRESSION: 1. No cholelithiasis or definite evidence of cholecystitis. Dictated by: Diego Martinez M.D. on 07/21/2020 at 20:44 Approved by: Diego Martinez M.D. on 07/21/2020 at 20:47
[2020-07-21] MEDS: FLEETS ENEMA 1 EACH PR (21:09)
== END 2020-07-21 22:53 | disposition home or self-care (01) ==
PROVIDERS: Emergency Medicine; Emergency Provider Emergency Medicine; PCP Family Medicine
DX: K56.41 Fecal impaction (principal); R11.0 Nausea; R10.9 Unspecified abdominal pain
CPT/HCPCS: 36415; 74177; 76705; 80053; 81003; 83690; 85025; 99284; Q9967

== ENCOUNTER → 2024-02-16 | Outpatient (CLI) | payer MEDICARE, SELFPAY ==
--- NOTE | 2024-02-16 06:56 | DI.ECHO.S_ITS ---
[place] [facility]---------+ [facility] +---------+ : : [address] : : : : [id number] : : : : Phone: [phone]+ Echocardiogram Report + + :Name: ALLAN GONZALES Study Date: 02/16/2024 Height: 74 in : :[facility] ReadingLocation: Weight: 190 lb : : Gender: Male BSA: 2.1 m2 : :: 1945 Age: 78 yrs BP: 112/76 mmHg: :Reason For Study: HYPERTENSION : :Ordering Physician: WENDY, : :LY Performed By: Angélica Heredia : :Referring: LY NGUYEN : + + Interpretation Summary Left ventricular ejection fraction is estimated to be 50 +/- 5%. There are no obvious focal wall motion abnormalities noted but poor endocardial definition reduces the sensitivity for the detection of such. There is a prosthetic aortic valve. There is no aortic valve stenosis. Procedure: A two-dimensional transthoracic echocardiogram with color flow and Doppler was performed. The study quality was technically adequate. Comparison is made with the echocardiogram of 07/31/2021. The patient was in atrial fibrillation with heart rates between 98-125 bpm during the exam. Left Ventricle: The left ventricle is normal in size and wall thickness. Left ventricular ejection fraction is estimated to be 50 +/- 5%. There are no obvious focal wall motion abnormalities noted but poor endocardial definition reduces the sensitivity for the detection of such. Diastolic function could not be accurately assessed due to atrial fibrillation. Right Ventricle: The right ventricle is normal size. Right ventricular systolic function is mildly reduced. Atria: The left atrial size is normal. Right atrial size is normal. There is no Doppler evidence for an interatrial shunt. Mitral Valve: There is mild mitral annular calcification. The mitral valve leaflets appear mildly thickened, but open well. There is trace mitral regurgitation. Aortic Valve: There is a prosthetic aortic valve. There is probable normal prosthetic aortic valve function. There is no aortic valve stenosis. The peak aortic velocity is 1.0 m/sec. The aortic valve mean gradient is 3 mmHg. Tricuspid Valve: The tricuspid valve is normal in structure and function. No tricuspid regurgitation. Pulmonary artery pressures cannot be estimated because of the lack of a measurable TR jet velocity. Pulmonic Valve: The pulmonic valve is not well seen, but is grossly normal. There is no pulmonic valvular regurgitation. Great Vessels: The dimensions of the ascending aorta are normal. The IVC is of normal diameter and collapses greater than 50% with a sniff. This suggests a low right atrial pressure of 3 mm Hg. Pericardium/ Pleura There is no pericardial effusion. There is no pleural effusion. MMode/2D Measurements & Calculations LVIDd: 4.7 cm LVOT diam: 2.3 cm LVIDs: 3.3 cm asc Aorta Diam: 3.4 cm FS: 28.6 % IVSd: 0.84 cm LVPWd: 0.94 cm LV mendoza. diameter/BSA (cm/m^2): 2.2 LV sys. diameter/BSA (cm/m^2): 1.6 LA A2 area: 20.7 cm2 RA long axis: 5.3 cm LA A4 area: 18.8 cm2 RA area: 15.7 cm2 LA length (vol): 5.1 cm RA vol: 39.1 ml LA vol: 65.2 ml RA : 18.4 ml/m2 LA vol index: 30.7 ml/m2 IVC diam: 1.9 cm RVD1 (basal): 4.0 cm RVD2 (mid): 3.1 cm TAPSE: 1.5 cm Doppler Measurements & Calculations Ao V2 max: 107.3 cm/sec LVOT Max Mason: 71.3 cm/sec Ao V2 mean: 74.9 cm/sec LV V1 max P.0 mmHg Ao max P.1 mmHg LV V1 VTI: 12.4 cm Ao mean P.9 mmHg EBONI(I,D): 3.2 cm2 Ao V2 VTI: 15.6 cm EBONI(V,D): 2.7 cm2 sev ratio: 0.80 EBONI indexed to BSA (cm^2/m^2): 1.5 MV E max mason: 99.6 cm/sec PA V2 max: 73.2 cm/sec MV A max mason: 1.00 cm/sec PA V2 mean: 51.8 cm/sec MV E/A: 100.0 PA mean P.2 mmHg Med Peak E' Mason: 5.7 cm/sec PA pr(Accel): 49.9 mmHg E/E' med: 17.5 Lat Peak E' Mason: 9.9 cm/sec E/E' lat: 10.1 E/e' average: 13.8 MV dec time: 0.20 sec MVA(VTI): 2.7 cm2 MV V2 mean: 61.5 cm/sec SV(LVOT): 49.8 ml MV mean P.9 mmHg MV V2 VTI: 18.5 cm Reading Physician:10:23 AM
== END ==
PROVIDERS: PCP Family Medicine; Referring Provider Nurse Practitioner Family; Visit Provider Nurse Practitioner Family
DX: I34.81 Nonrheumatic mitral (valve) annulus calcification (principal); I48.91 Unspecified atrial fibrillation; I63.512 Cerebral infarction due to unspecified occlusion or stenosis of left middle cerebral artery; I10 Essential (primary) hypertension; Z95.2 Presence of prosthetic heart valve
CPT/HCPCS: 93306

== ENCOUNTER → 2024-03-17 09:08 | Outpatient (CLI) | payer MEDICARE, SELFPAY ==
[2024-03-17 10:09] LABS: Add Manual Diff / Slide Review NO; Basophils Absolute Auto 100 /uL (0-100); Basophils Percent Auto 1.2 % (0-2); Eosinophils Absolute Auto 600 /uL (0-450); Eosinophils Percent Auto 7.5 % (2-4); Hematocrit 43.7 % (41-53); Hemoglobin 14.8 g/dL (13.5-17.5); Lymphocytes Absolute Auto 1200 /uL (1100-4500); Lymphocytes Percent Auto 16.7 % (25-40); Mean Corpuscular HGB Conc 33.8 % (30-36); Mean Corpuscular Hemoglobin 31.6 PG (26-34); Mean Corpuscular Volume 93.3 fL (80-100); Monocytes Absolute Auto 600 /uL (0-900); Monocytes Percent Auto 8.5 % (3-14); Neutrophils Absolute Auto 4900 /uL (1500-7000); Neutrophils Percent Auto 66.1 % (50-75); Platelet Count 253 X10^3/uL (150-400); Red Blood Cell Count 4.69 X10^6/uL (4.5-5.9); Red Cell Distribution Width 15.2 % (11.6-14.8); White Blood Cell Count 7.5 X10^3/uL (4.5-11.0)
[2024-03-17 10:19] LABS: Hemoglobin A1C% w Est Avg Glu 6.3 % (4.0-6.0)
[2024-03-17 10:28] LABS: Alanine Aminotransferase 23 IU/L (<50); Albumin 4.4 g/dL (3.5-5.0); Albumin Globulin Ratio 1.3 (1.0-2.8); Alkaline Phosphatase 94 U/L (38-126); Aspartate Aminotransferase 27 IU/L (17-59); BUN Creatinine Ratio 26.8 (6-22); Blood Urea Nitrogen 19 mg/dL (9-20); Calcium 9.4 mg/dL (8.4-10.2); Carbon Dioxide 31 mmol/L (22-32); Chloride 104 mmol/L (98-107); Cholesterol 157 mg/dL (140-199); Estimated Glomerular Filt Rate > 60 mL/min (>60); Globulin 3.4 g/dL (1.7-4.1); Glucose 108 mg/dL (80-110); HDL Cholesterol 40 mg/dL (40-60); HEMOLYSIS < 15 (0-50); LDL Cholesterol Calculated 95 mg/dL (<100); Magnesium 2.2 mg/dL (1.6-2.3); Potassium 4.7 mmol/L (3.4-5.1); Sodium 138 mmol/L (137-145); Total Protein 7.8 g/dL (6.3-8.2); Triglycerides 111 mg/dL (35-150)
[2024-03-17 10:36] LABS: NT-proBNP (BNP-Adult 18+) 639 pg/mL (<450)
[2024-03-17 10:45] LABS: Free T4, Direct Thyroxine 1.04 ng/dL (0.78-2.19)
[2024-03-17 10:59] LABS: Thyroid Stimulating Hormone 2.65 uIU/mL (0.47-4.68)
== END ==
PROVIDERS: PCP Family Medicine; Visit Provider Nurse Practitioner Family
DX: I48.91 Unspecified atrial fibrillation (principal); I10 Essential (primary) hypertension; E78.5 Hyperlipidemia, unspecified; I63.512 Cerebral infarction due to unspecified occlusion or stenosis of left middle cerebral artery
CPT/HCPCS: 36415; 80053; 80061; 83036; 83735; 83880; 84439; 84443; 85025

== ENCOUNTER 2025-04-12 20:24 | Emergency (ER) | payer MEDICARE, SELFPAY ==
[2025-04-12] VITALS (8 sets, daily range): BP systolic 101–133; BP diastolic 74–87; PULSE 93–109; RESP 18–28; TEMP 36.7; O2SAT 93–96
--- NOTE | 2025-04-12 20:27 | DI.CT.S_ITS ---
PROCEDURE: CT STROKE INDICATIONS: aphasia , AMS TECHNIQUE: Noncontrast 4.5 mm thick angled axial sections acquired from the foramen magnum to the vertex, with coronal reformats. For radiation dose reduction, the following was used: automated exposure control, adjustment of mA and/or kV according to patient size. COMPARISON: None. FINDINGS: Image quality: Diagnostic. CSF spaces: Basal cisterns are patent. No extra-axial fluid collections. The ventricles are symmetric in size and shape. Brain: No intracranial bleeds or mass effect. There is cerebral volume loss, with resultant ventricular and sulcal prominence. There are periventricular and deep white matter chronic small vessel ischemic changes. There is intracranial internal carotid artery atherosclerosis. Remote bilateral MCA territory infarcts. Skull and face: Calvarium and visualized facial bones appear intact, without suspicious lesions. Sinuses: Visualized sinuses and mastoids are clear. Complete opacification of the right maxillary sinus, with wall sclerosis. Trace right mastoid air cell fluid. IMPRESSION: No acute intracranial pathology. Remote bilateral MCA territory infarct. Right maxillary sinusitis. This is acute on chronic. Findings discussed with Dr. Mckeon at 8:50 p.m. On 04/12/2025. This study fulfills neurological imaging criteria for inclusion or exclusion of acute stroke therapies based on available published neurological guidelines. Dictated by: Pascual Clinton M.D. on 04/12/2025 at 20:48 Approved by: Pascual Clinton M.D. on 04/12/2025 at 20:50
--- NOTE | 2025-04-12 20:27 | DI.CT.S_ITS ---
PROCEDURE: CT ANGIO HEAD AND NECK INDICATIONS: aphasia , AMS TECHNIQUE: After the administration of intravenous contrast, 1 mm thick sections acquired from the aortic arch through the [place]. 3-dimensional zifeiev-lvosfgjqd-zoxnmtbler (MIP) and/or volume rendering reformats were acquired of the central intracranial vasculature and neck separately. For radiation dose reduction, the following was used: automated exposure control, adjustment of mA and/or kV according to patient size. COMPARISON: None. FINDINGS: Image quality: Diagnostic. Cerebral CT Angiogram: Internal carotid arteries: No acute findings. Intracranial ICA are patent with no significant stenosis. No occlusion. No aneurysm. Anterior cerebral arteries: Unremarkable. No significant stenosis. No occlusion. No aneurysm. Middle cerebral arteries: Unremarkable. No significant stenosis. No occlusion. No aneurysm. Posterior cerebral arteries: Unremarkable. No significant stenosis. No occlusion. No aneurysm. Basilar artery: Unremarkable. No significant stenosis. No occlusion. No aneurysm. Vertebral arteries: Unremarkable as visualized. Dural venous sinuses: Unremarkable given phase of enhancement. Other: Arterial phase appearance of the brain parenchyma is unremarkable. Neck CT Angiogram: Internal carotid arteries: Unremarkable. No significant stenosis. No dissection or occlusion. Common carotid arteries: Unremarkable. Mild stenosis on the left. External carotid arteries: Unremarkable. No occlusion. Vertebral arteries: Unremarkable. No significant stenosis. No dissection or occlusion. Aortic Arch and Mediastinum: Partially visualized aortic arch unremarkable without evidence of aneurysm. Origins of the great vessels unremarkable. Other: Acute on chronic right maxillary sinusitis. IMPRESSION: No large vessel occlusion. Any quantitative measurements of stenosis were performed using NASCET criteria. Dictated by: Pascual Clinton M.D. on 04/12/2025 at 20:52 Approved by: Pascual Clinton M.D. on 04/12/2025 at 20:54
--- NOTE | 2025-04-12 20:29 | DI.RAD.S_ITS ---
PROCEDURE: XR CHEST 1V INDICATIONS: stroke alert TECHNIQUE: One view of the chest was acquired. COMPARISON: None. FINDINGS: Surgical changes and devices: Prosthetic aortic valve. Lungs and pleura: Streaky bibasilar atelectasis. Mediastinum: Mediastinal contours appear normal. Heart size is normal. Bones and chest wall: No suspicious bony lesions. Overlying soft tissues appear unremarkable. IMPRESSION: No acute cardiopulmonary abnormality is seen. Dictated by: Pascual Clinton M.D. on 04/12/2025 at 21:01 Approved by: Pascual Clinton M.D. on 04/12/2025 at 21:01
--- NOTE | 2025-04-12 20:29 | ED.AMS ---
HPI - Altered Mental Status General Chief Complaint: Neuro Symptoms/Deficit Stated Complaint: stroke Time Seen by Provider: 04/12/25 20:29 History of Present Illness HPI narrative: 79-year-old male with a past medical history of AFib on warfarin, hypertension, hyperlipidemia stroke with right-sided residual deficits stenting from EMS for evaluation of aphasia, increased confusion, according to family last known normal was around 2:00 p.m., according to family patient is normally able to hold full sentences but is now having ?garbled speech at time of evaluation patient is hard of hearing he appears confused does appear to have some aphasia/difficulty speaking, however unsure of actual baseline. According to family he has a right-sided residual deficit however unsure of actual true baseline additional ROS HPI limited given patient's confusion. Stroke alert called immediately Related Data Home Medications Medication Instructions Recorded Confirmed atorvastatin 10 mg tablet 10 mg PO DAILY 07/21/20 07/26/21 warfarin 5 mg tablet 5 mg PO DAILY 07/21/20 07/26/21 flecainide 50 mg tablet 50 mg PO Q12H 07/26/21 07/26/21 metoprolol succinate 50 mg 50 mg PO BID 07/26/21 07/26/21 tablet,extended release 24 hr Previous Rx's Medication Instructions Recorded cephalexin 500 mg capsule 500 mg PO TID 7 days #21 caps 04/12/25 nystatin 100,000 unit/gram topical 1 applic topical BID #30 grams 04/12/25 powder Allergies Allergy/AdvReac Type Severity Reaction Status Date / Time No Known Drug Allergies Allergy Verified 07/26/21 13:31 Review of Systems Review of Systems ROS Unobtainable: Unobtainable due to mental status/LOC Patient History alcohol intake frequency: 0-2 drinks per day Exam Narrative Exam Narrative: General: Cooperative, well-developed, not in acute distress HEENT: Normocephalic, atraumatic, PERRLA, normal sclera, eyelids normal Neck: Active full range of motion, atraumatic Chest: Normal to inspection, negative crepitus, no overlying erythema ecchymosis Respiratory: Normal respiratory effort, not in acute respiratory distress, clear to auscultation bilaterally negative cough, wheeze, tachypnea, rhonchi, rales Cardiology: Regular rate rhythm negative gallop, murmur, rubs GI/: No tenderness to palpation, soft, non rigid, normal to inspection, exam deferred MSK: Full active range of motion in all 4 extremities, atraumatic, no tenderness to palpation of any bony prominences Skin: No rashes or lesions noted Neuro: Patient hard of hearing, confused, does have garbled speech, patient does appear to have residual right-sided deficits, is moving left upper and lower extremities spontaneously Initial Vital Signs Initial Vital Signs: Vital Signs Pulse Rate 101 H 04/12/25 20:27 Respiratory Rate 18 04/12/25 20:27 Blood Pressure 101/74 04/12/25 20:27 Pulse Oximetry 96 04/12/25 20:27 Course Orders Ordered: ED Orders 04/12/25 20:15 Complete Blood Count AUTO DIFF Stat Comprehensive Metabolic Panel Stat Ethanol (ETOH) Stat PTT Partial Thromboplastin [place] Stat Prothrombin Time INR Stat Troponin & CK Cardiac Panel Stat 04/12/25 20:[address] angio head and neck Stat EKG-12 Lead Stat 04/12/25 20:29 CXR [XR chest 1V] Stat 04/12/25 21:35 Urinalysis and Microscopic Stat Urine Drug Screen, Rapid Stat Discontinued Medications Lidocaine HCl (Lidocaine 2% (Glydo) 6 Ml Gel) 6 ml TOP NOW ONE Stop: 04/12/25 21:22 Last Admin: 04/12/25 21:40 Dose: 6 ml Documented By: [facility] Nystatin (Nystatin Cream 30 Gm) 1 applic TOP NOW ONE Stop: 04/12/25 21:20 Nystatin (Nystatin Powder 15gm) 1 applic TOP NOW ONE Stop: 04/12/25 21:58 Vital Signs Vital signs: Vital Signs - 8 hr 04/12/25 20:27 04/12/25 20:27 04/12/25 20:29 Temperature 98.0 F Pulse Rate 101 H 93 H Respiratory Rate 18 18 Blood Pressure 101/74 133/87 Pulse Oximetry 96 94 Oxygen Delivery Method Room Air 04/12/25 20:41 04/12/25 20:43 04/12/25 20:43 Temperature Pulse Rate 103 H 99 H Respiratory Rate 23 Blood Pressure 133/87 Pulse Oximetry 94 94 Oxygen Delivery Method 04/12/25 21:00 Temperature 98.0 F Pulse Rate 102 H Respiratory Rate 23 Blood Pressure Pulse Oximetry 93 Oxygen Delivery Method MDM - Altered Mental Status Differential Diagnosis Differential diagnosis: Likely altered mental status, dementia, other and subarachnoid hemorrhage Lab Data 04/12/25 20:15 04/12/25 20:15 Labs: Lab Results 04/12/25 04/12/25 04/12/25 Range/Units 20:15 21:35 21:35 WBC 6.6 (4.5-11.0) X10^3/uL RBC 5.30 (4.5-5.9) X10^6/uL Hgb 16.9 (13.5-17.5) g/dL Hct 49.0 (41-53) % MCV 92.5 (80-100) fL MCH 31.9 (26-34) PG MCHC 34.5 (30-36) % RDW 14.8 (11.6-14.8) % Plt Count 280 (150-400) X10^3/uL Neut % (Auto) 70.1 (50-75) % Lymph % (Auto) 14.4 L (25-40) % [place] % (Auto) 10.9 (3-14) % Eos % (Auto) 3.4 (2-4) % Baso % (Auto) 1.2 (0-2) % Neut # (Auto) 4600 (9971-2350) /uL Lymph # (Auto) 900 L (1676-5150) /uL [place] # (Auto) 700 (0-900) /uL Eos # (Auto) 200 (0-450) /uL Baso # (Auto) 100 (0-100) /uL PT 22.0 H (9.4-12.5) SECONDS INR 2.0 H (0.9-1.3) APTT 49 H (25.1-36.5) SECONDS Sodium 137 (137-145) mmol/L Potassium 4.5 (3.4-5.1) mmol/L Chloride 103 (98-107) mmol/L Carbon Dioxide 24 (22-32) mmol/L BUN 21 H (9-20) mg/dL Creatinine 0.86 (0.66-1.25) mg/dL Estimated GFR > 60 (>60) mL/min BUN/Creatinine Ratio 24.4 H (6-22) Glucose 117 H (70-99) mg/dL Calcium 9.3 (8.4-10.2) mg/dL Total Bilirubin 2.6 H (0.2-1.3) mg/dL AST 24 (17-59) IU/L ALT 18 (<50) IU/L Alkaline Phosphatase 101 (38-126) U/L Total Creatine Kinase 38 L (55-170) U/L Troponin I < 0.012 (0.01-0.034) ng/mL Total Protein 8.5 H (6.3-8.2) g/dL Albumin 4.3 (3.5-5.0) g/dL Globulin 4.2 H (1.7-4.1) g/dL Albumin/Globulin Ratio 1.0 (1.0-2.8) Urine Color Yellow Urine Appearance Clear Urine pH 5.0 Normal (4.5-8.0) Ur Specific [place] >=1.030 H (1.000-1.035) Urine Protein Negative (Negative) Urine Glucose (UA) Negative (Negative) g/dL Urine Ketones Negative (NEGATIVE) Urine Occult Blood Negative (Negative) Urine Nitrate Negative (Negative) Urine Bilirubin Negative (NEGATIVE) Urine Urobilinogen 1.0 (0.2) E.U./dL Ur Leukocyte Esterase Negative (NEGATIVE) Urine RBC 1-5/hpf (0-5/HPF) Urine WBC 1-5/hpf (0-5/HPF) Ur Squamous Epith Cells 0-1 /hpf (0-5/HPF) Urine Bacteria Few (2-10) H (None) Urine Mucus 2+ H (Negative) Ur Culture Indicated? Cult not indicated Vol Urine Centrifuged 10ml (spun) U Opiates 300ng/mL cut Positive H (Negative) Ur Oxycodone Screen Negative (Negative) Urine Methadone Screen Negative (Negative) Ur Barbiturates Screen Negative (Negative) U Tricyclic Antidepress Negative (Negative) Ur Phencyclidine Scrn Negative (Negative) Ur Amphetamines Screen Negative (Negative) U Methamphetamines Scrn Negative (Negative) Ur MDMA Scrn (Ecstasy) Negative (Negative) U Benzodiazepines Scrn Negative (Negative) Urine Cocaine Screen Negative (Negative) U Marijuana (THC) Screen Negative (Negative) Urine Specific [place] Normal (Normal) Ethyl Alcohol < 10 (<10) mg/dL Ur Creatinine Normal (Normal) Point of Care Testing Glucose POC [address] scan - head: Radiologist's Impression: [address] [address] [address] Scan Report Signed Patient: Kelvin Headley MR#: [id number] : 1945 Acct:[id number] Age/Sex: 79 / M Date of Service: 04/12/25 Loc: ED Accession Number: [id number] Procedure: CT Stroke Ordering Provider: Nomi Mckeon D.O. PROCEDURE: CT STROKE INDICATIONS: aphasia , AMS TECHNIQUE: Noncontrast 4.5 mm thick angled axial sections acquired from the foramen magnum to the vertex, with coronal reformats. For radiation dose reduction, the following was used: automated exposure control, adjustment of mA and/or kV according to patient size. COMPARISON: None. FINDINGS: Image quality: Diagnostic. CSF spaces: Basal cisterns are patent. No extra-axial fluid collections. The ventricles are symmetric in size and shape. Brain: No intracranial bleeds or mass effect. There is cerebral volume loss, with resultant ventricular and sulcal prominence. There are periventricular and deep white matter chronic small vessel ischemic changes. There is intracranial internal carotid artery atherosclerosis. Remote bilateral MCA territory infarcts. Skull and face: Calvarium and visualized facial bones appear intact, without suspicious lesions. Sinuses: Visualized sinuses and mastoids are clear. Complete opacification of the right maxillary sinus, with wall sclerosis. Trace right mastoid air cell fluid. IMPRESSION: No acute intracranial pathology. Remote bilateral MCA territory infarct. Right maxillary sinusitis. This is acute on chronic. Findings discussed with Dr. Mckeon at 8:50 p.m. On 04/12/2025. This study fulfills neurological imaging criteria for inclusion or exclusion of acute stroke therapies based on available published neurological guidelines. CTA - brain/neck: Radiologist's Impression: [place] [address] CT Scan Report Signed Patient: Kelvin Headley MR#: [id number] : 1945 Acct:[id number] Age/Sex: 79 / M Date of Service: 04/12/25 Loc: ED Accession Number: [id number] Procedure: CT angio head and neck Ordering Provider: Nomi Mckeon D.O. PROCEDURE: CT ANGIO HEAD AND NECK INDICATIONS: aphasia , AMS TECHNIQUE: After the administration of intravenous contrast, 1 mm thick sections acquired from the aortic arch through the [place]. 3-dimensional vrgiujk-zdmrxlezd-sijhhvnlok (MIP) and/or volume rendering reformats were acquired of the central intracranial vasculature and neck separately. For radiation dose reduction, the following was used: automated exposure control, adjustment of mA and/or kV according to patient size. COMPARISON: None. FINDINGS: Image quality: Diagnostic. Cerebral CT Angiogram: Internal carotid arteries: No acute findings. Intracranial ICA are patent with no significant stenosis. No occlusion. No aneurysm. Anterior cerebral arteries: Unremarkable. No significant stenosis. No occlusion. No aneurysm. Middle cerebral arteries: Unremarkable. No significant stenosis. No occlusion. No aneurysm. Posterior cerebral arteries: Unremarkable. No significant stenosis. No occlusion. No aneurysm. Basilar artery: Unremarkable. No significant stenosis. No occlusion. No aneurysm. Vertebral arteries: Unremarkable as visualized. Dural venous sinuses: Unremarkable given phase of enhancement. Other: Arterial phase appearance of the brain parenchyma is unremarkable. Neck CT Angiogram: Internal carotid arteries: Unremarkable. No significant stenosis. No dissection or occlusion. Common carotid arteries: Unremarkable. Mild stenosis on the left. External carotid arteries: Unremarkable. No occlusion. Vertebral arteries: Unremarkable. No significant stenosis. No dissection or occlusion. Aortic Arch and Mediastinum: Partially visualized aortic arch unremarkable without evidence of aneurysm. Origins of the great vessels unremarkable. Other: Acute on chronic right maxillary sinusitis. IMPRESSION: No large vessel occlusion. Chest x-ray: Radiologist's Impression: [place] [address] XRay Report Signed Patient: Kelvin Headley MR#: [id number] : 1945 Acct:[id number] Age/Sex: 79 / M Date of Service: 04/12/25 Loc: ED Accession Number: [id number] Procedure: XR chest 1V Ordering Provider: Nomi Mckeon D.O. PROCEDURE: XR CHEST 1V INDICATIONS: stroke alert TECHNIQUE: One view of the chest was acquired. COMPARISON: None. FINDINGS: Surgical changes and devices: Prosthetic aortic valve. Lungs and pleura: Streaky bibasilar atelectasis. Mediastinum: Mediastinal contours appear normal. Heart size is normal. Bones and chest wall: No suspicious bony lesions. Overlying soft tissues appear unremarkable. IMPRESSION: No acute cardiopulmonary abnormality is seen. ECG Data Interpretation: Atrial fibrillation at 99 beats per minute, QTC [address] changes no STEMI MDM Narrative Medical decision making narrative: 79-year-old male with a past medical history of CVA with residual right-sided deficits, hyper lipidemia hypertension AFib on warfarin presents via EMS from home for evaluation of increased confusion/garbled speech. According to medics they are unsure of patient's baseline however they state that they were told patient last known normal was around 2:00p.m. today. At time of evaluation patient does appear to have a right-sided residual deficits but is moving the left side spontaneously, he is hard of hearing he is able to answer basic questions but does appear to have some garbled speech. After discussion with family at bedside they state that he does have a history of right-sided residual deficits, states he is normally able to walk with a cane but drags his right side, states that he normally is confused but is making more grunting noises which is what confused/worried them. They state that he does appear better now. Patient had stroke alert called immediately upon arrival, CT head without any acute findings, CTA head and neck showing history of remote stroke but no acute findings, chest x-ray without any acute cardiopulmonary abnormality INR at 2.0, no leukocytosis Chem panel unremarkable troponin negative EKG AFib nonischemic in nature patient was noted to have what appears to be more of a fungal infection towards his penis groin area, urinalysis consistent with acute UTI, I did discuss with family about possible admission versus discharge, they state that they feel comfortable taking the patient home/would prefer this since it appears to be symptomology more likely due to UTI. Strict return precautions were given to family they verbalized understanding of this and agreed everything discharged home with outpatient follow up Discharge Plan Departure Patient Disposition: Home Clinical Impression: Acute UTI, Tinea cruris Activity Restrictions/Additional Instructions: Please follow up with the primary care doctor Please read the discharge instructions sheet carefully and bring all papers to all doctor follow-up visits, as it may contain information that your doctor may want to see. Disease processes change and evolve, if your symptoms worsen or if you develop any new symptoms that are concerning to you please return for evaluation. Your evaluation today does not show any evidence of any life-threatening/serious illnesses requiring admission to the hospital or surgery. Please follow-up with your doctor for re-evaluation in approximately 1 day. Seek immediate medical attention for any worrisome symptoms. *If you do not have a primary care provider please contact the [facility] Resource line at [phone]. They will ask some questions about your medical history and help get you set up with a doctor in the community. Prescriptions: New nystatin 100,000 unit/gram powder 1 applic topical BID Qty: 30 0RF cephalexin 500 mg capsule 500 mg PO TID 7 Days Qty: 21 0RF No Action flecainide 50 mg tablet 50 mg PO Q12H metoprolol succinate 50 mg tablet extended release 24 hr 50 mg PO BID atorvastatin 10 mg tablet 10 mg PO DAILY warfarin 5 mg tablet 5 mg PO DAILY Rx Instructions: 5mg 4x week, 2.5mg 3x week Referrals: Anali Roman MD [Primary Care Provider] - Stand Alone Forms: Patient Portal/API/Survey
[2025-04-12 20:34] LABS: Add Manual Diff / Slide Review NO; Basophils Absolute Auto 100 /uL (0-100); Basophils Percent Auto 1.2 % (0-2); Eosinophils Absolute Auto 200 /uL (0-450); Eosinophils Percent Auto 3.4 % (2-4); Hemoglobin 16.9 g/dL (13.5-17.5); Lymphocytes Absolute Auto 900 /uL (1100-4500); Lymphocytes Percent Auto 14.4 % (25-40); Mean Corpuscular HGB Conc 34.5 % (30-36); Mean Corpuscular Hemoglobin 31.9 PG (26-34); Mean Corpuscular Volume 92.5 fL (80-100); Monocytes Absolute Auto 700 /uL (0-900); Monocytes Percent Auto 10.9 % (3-14); Neutrophils Absolute Auto 4600 /uL (1500-7000); Neutrophils Percent Auto 70.1 % (50-75); Platelet Count 280 X10^3/uL (150-400); Red Cell Distribution Width 14.8 % (11.6-14.8); White Blood Cell Count 6.6 X10^3/uL (4.5-11.0)
[2025-04-12 20:41] LABS: PTT Partial Thromboplastin Tim 49 SECONDS (25.1-36.5)
[2025-04-12 20:44] LABS: Alanine Aminotransferase 18 IU/L (<50); Albumin 4.3 g/dL (3.5-5.0); Alkaline Phosphatase 101 U/L (38-126); Aspartate Aminotransferase 24 IU/L (17-59); BUN Creatinine Ratio 24.4 (6-22); Bilirubin Total 2.6 mg/dL (0.2-1.3); Blood Urea Nitrogen 21 mg/dL (9-20); Calcium 9.3 mg/dL (8.4-10.2); Carbon Dioxide 24 mmol/L (22-32); Chloride 103 mmol/L (98-107); Creatine Kinase 38 U/L (55-170); Estimated Glomerular Filt Rate > 60 mL/min (>60); Ethanol (ETOH) < 10 mg/dL (<10); Globulin 4.2 g/dL (1.7-4.1); Glucose 117 mg/dL (70-99); HEMOLYSIS 15 (0-50); Potassium 4.5 mmol/L (3.4-5.1); Sodium 137 mmol/L (137-145); Total Protein 8.5 g/dL (6.3-8.2)
[2025-04-12 20:55] LABS: Troponin I < 0.012 ng/mL (0.01-0.034)
[2025-04-12] MEDS: LIDOCAINE 2% (GLYDO) 6 ML GEL TOP (21:40)
[2025-04-12 21:44] LABS: Ur Creatinine Normal (Normal); Ur Specific Gravity Normal (Normal); Urine Amphetamines Negative (Negative); Urine Barbiturates Negative (Negative); Urine Benzodiazepines Negative (Negative); Urine Cocaine Negative (Negative); Urine MDMA Negative (Negative); Urine Methadone Negative (Negative); Urine Opiates Positive (Negative); Urine Oxycodone Negative (Negative); Urine Phencyclidine Negative (Negative); Urine THC Negative (Negative); Urine Tricyclic Antidepressant Negative (Negative); Urine pH Normal (Normal)
--- NOTE | 2025-04-12 21:45 | PC.NURSE ---
Pt has a Hx of stroke (2019) w/known R side deficits. Per pt's daughter, at baseline he has generalized weakness bilat but is able to limitedly move all four limbs. Pt's affected R side has been gradually going limb. Pt remains ambulatory at home w/a stick while dragging his R leg. Aphasia is also present at baseline but family collectively endorses he is able to communicate his needs well. Today pt's speech became garbled and pt called EMS w/c/o repeat stroke.
[2025-04-12 21:48] LABS: Appearance Urine UA CLEAR; Bilirubin Urine UA NEGATIVE (NEGATIVE); Color Urine UA YELLOW; Glucose Urine UA NEGATIVE (Negative); Ketones Urine UA NEGATIVE (NEGATIVE); Leukocyte Esterase Urine UA NEGATIVE (NEGATIVE); Nitrite Urine UA NEGATIVE (Negative); Occult Blood Urine UA NEGATIVE (Negative); Protein Urine UA NEGATIVE (Negative); Specific Gravity Urine UA >=1.030 (1.000-1.035)
[2025-04-12 21:59] LABS: Bacteria Urine Few (2-10); RBC Urine 1-5/HPF (0-5/HPF); Squamous Epithelial Cell Urine 0-1 /HPF (0-5/HPF); Urine Volume 10mL (spun); WBC Urine 1-5/HPF (0-5/HPF)
[2025-04-12 22:00] LABS: Culture Indicated Urine Cult Not Indicated; Mucus Urine 2+ (Negative)
[2025-04-12] MEDS: NYSTATIN POWDER 15GM 1 APPLIC TOP (22:00)
--- NOTE | 2025-04-12 22:17 | EKG_ITS ---
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
[2025-04-12] MEDS: cephALEXin 250 MG CAPSULE 500 MG PO (22:29)
== END 2025-04-12 22:55 | disposition home or self-care (01) ==
PROVIDERS: Emergency Provider Student in an Organized Health Care Education/Training Program; PCP Family Medicine
DX: N39.0 Urinary tract infection, site not specified (principal); B35.6 Tinea cruris; R41.82 Altered mental status, unspecified; R47.01 Aphasia
CPT/HCPCS: 36415; 70450; 70496; 70498; 71045; 80053; 80305; 80320; 81001; 82550; 82962; 84484; 85025; 85610; 85730; 93005; 99285; Q9967